=== PATIENT | female | born 1990 | race American Indian/Alaskan Native ===

== ENCOUNTER 2016-12-27 07:53 | Emergency (ER) | payer SELFPAY ==
[2016-12-27 09:13] LABS: Bilirubin,Urine NEG (Negative); Blood,Urine NEG (Negative); Ketones,Urine NEG (Negative); Leukocyte Esterase,Urine LG (Negative); Mucus,Urine 3+ /HPF; Nitrite,Urine NEG (Negative); Urobilinogen,Urine < 2.0 mg/dL (<2.0)
[2016-12-27 09:18] LABS: Basophils % (Auto) 0.6 % (0.0-1.8); Eosinophils % (Auto) 2.5 % (0.0-4.3); Hematocrit 35.8 % (30.3-42.9); Hemoglobin 12.1 gm/dl (10.1-14.3); Mean Corpuscular HGB Conc 34 % (30-34); Mean Corpuscular Hemoglobin 28 pg (28-32); Mean Corpuscular Volume 83 fl (79-97); Platelet Count 255 K/mm3 (140-440); Red Cell Distribution Width 14.2 % (13.2-15.2); White Blood Count 9.3 K/mm3 (4.5-11.0)
[2016-12-27 09:31] LABS: Alanine Aminotransferase 15 units/L (7-56); Albumin 4.1 g/dL (3.9-5); Albumin/Globulin Ratio 1.1 %; Alkaline Phosphatase 87 units/L (35-129); Anion Gap 19 mmol/L; BUN/Creatinine Ratio 21.66; Blood Urea Nitrogen 13 mg/dL (7-17); Carbon Dioxide 24 mmol/L (22-30); Chloride 99.4 mmol/L (98-107); Glucose 83 mg/dL (65-100); Potassium 3.7 mmol/L (3.6-5.0); Sodium 139 mmol/L (137-145); Total Protein 7.7 g/dL (6.3-8.2)
[2016-12-27 10:39] LABS: Lipase 21 units/L (13-60)
--- NOTE | 2016-12-27 14:56 | Emergency Department Report ---
HPI - General Chief Complaint: Abdominal Pain Time Seen by Provider: 12/27/16 13:31 - HPI HPI: 26-year-old female presents to the emergency department with complaint of a sharp right lower quadrant abdominal pain since last night. She also complains of a few days of some generalized vaginal discharge. She says that she does not have any particular color and is not particularly malodorous but she says it is a moderate amount as it is wetting her underwear. The patient says that she had a D&C or some type of about 2 weeks ago and she says she was about 6 weeks at that time. She otherwise has a past surgical history of having a . She admits that she missed her follow-up status post D&C. She denies any fever, back pain, nausea, vomiting, chest pain or shortness of breath. No recent travel or sick contacts at home. ED Past Medical Hx - Past Medical History Previous Medical History?: No - Surgical History Past Surgical History?: Yes Additional Surgical History: - Social History Smoking Status: Never Smoker Substance Use Type: Alcohol - Medications Home Medications: Home Medications Medication Instructions Recorded Confirmed Last Taken Type Cyclobenzaprine [Flexeril] 10 mg PO TID PRN #20 tablet 03/10/16 Unknown Rx Diclofenac Sodium 75 mg PO TID #20 tablet. 03/10/16 Unknown Rx HYDROcodone/APAP 5-325 [[place] 1 each PO Q6HR PRN #8 tablet 12/27/16 Unknown Rx 5/325] metroNIDAZOLE [Metronidazole] 70 gm VG QDAY #5 gel.w.appl 12/27/16 Unknown Rx ED Review of Systems ROS: Stated complaint: ABDOMINAL PAIN Other details as noted in HPI Comment: All other systems reviewed and negative Constitutional: denies: chills, fever Eyes: denies: eye pain, eye discharge, vision change ENT: denies: ear pain, throat pain Respiratory: denies: cough, shortness of breath, wheezing Cardiovascular: denies: chest pain, palpitations Gastrointestinal: abdominal pain. denies: nausea, vomiting Genitourinary: discharge. denies: dysuria Musculoskeletal: denies: back pain, joint swelling, arthralgia Skin: denies: rash, lesions Neurological: denies: headache, weakness, paresthesias Physical Exam - Physical Exam Vital Signs: Vital Signs 12/27/16 12/27/16 07:56 14:15 Temperature 98.4 F Pulse Rate 89 Respiratory 16 14 Rate Blood Pressure 122/84 O2 Sat by Pulse 99 Oximetry Physical Exam: GENERAL: The patient is well-developed well-nourished. HENT: Normocephalic. Atraumatic. Patient has moist mucous membranes. EYES: Extraocular motions are intact. Pupils equal reactive to light bilaterally. NECK: Supple. Trachea is midline. CHEST/LUNGS: Clear to auscultation. There is no respiratory distress noted. HEART/CARDIOVASCULAR: Regular. There is no tachycardia. There is no gallop rub or murmur. ABDOMEN: Abdomen is soft. There is some tenderness palpation to the lower quadrants of the abdomen. No guarding or rebound tenderness. Patient has normal bowel sounds. There is no abdominal distention. SKIN: There is no rash. There is no edema. There is no diaphoresis. NEURO: The patient is awake, alert, and oriented. The patient is cooperative. The patient has no focal neurologic deficits. The patient has normal speech. MUSCULOSKELETAL: There is no tenderness or deformity. There is no limitation range of motion. There is no evidence of acute injury. : There is a moderate amount of yellowish white discharge seen in the vaginal wall. No obvious vaginal or lesions. ED Course Vital Signs 12/27/16 12/27/16 07:56 14:15 Temperature 98.4 F Pulse Rate 89 Respiratory 16 14 Rate Blood Pressure 122/84 O2 Sat by Pulse 99 Oximetry ED Medical Decision Making - Lab Data Result diagrams: 12/27/16 08:34 12/27/16 08:34 - Radiology Data Radiology results: report reviewed PROCEDURE: CT ABDOMEN PELVIS W CON TECHNIQUE: Computerized axial tomography of the abdomen and pelvis was performed after the IV injection of iodinated nonionic contrast. HISTORY: Abdominal pain COMPARISON: No prior studies are available for comparison. FINDINGS: Visualized lower thorax: No significant abnormality. Liver: Normal size and attenuation. Spleen: Normal size and attenuation. Gallbladder and biliary system: Normal. Pancreas: Normal. Adrenals: Normal. Kidneys: There is a nonobstructive 1 millimeter calculus in the right kidney lower pole. GI tract: Mild to moderate volume of stool is seen in the colon. Correlate for constipation. The appendix is visualized and does not appear inflamed. No bowel obstruction or inflammation is identified Lymph nodes and mesentery: Normal. Vasculature: Normal. Bladder: Normal. Reproductive organs: Normal. Peritoneum: No free fluid. Musculoskeletal structures: No significant abnormality. Other: None. IMPRESSION: No acute abnormality is identified. PROCEDURE: US TRANSVAGINAL and transabdominal TECHNIQUE: Real-time transabdominal sonography in multiple planes of the pelvis was performed. The pelvic structures were not optimally visualized. Transvaginal sonography was then performed to better evaluate the structures and/or abnormalities described below with image documentation. Grayscale, color flow Doppler imaging and velocity spectral waveform analysis of the ovaries was employed (duplex imaging). CPT 43942, 72489, [place] 69132 HISTORY: pelvic pain rule out retained poc. 2 weeks ago. COMPARISON: No prior studies are available for comparison. FINDINGS: UTERUS Size: 7.5 x 4.0 x 5.6 cm. Endometrial thickness: 8 mm. Blood flow is seen within the endometrium Orientation: Retroflexed. Cervix: Normal. Fibroids/masses: None. RIGHT Ovary: 2.7 x 2.4 x 3.2 cm. Appearance: Normal. Doppler images: Normal spectral waveforms and color flow. The systolic and diastolic velocities are within normal limits. LEFT Ovary: 3.9 x 1.8 x 3.2 cm. Appearance: Normal. Doppler images: Normal spectral waveforms and color flow. The systolic and diastolic velocities are within normal limits. Pelvic fluid: None. Other: None. IMPRESSION: Endometrium measures 8 millimeters in thickness and demonstrates some vascularity. This is nonspecific given the clinical history, however if there are clinical signs of retained products of conception, this cannot be excluded sonographically. - Medical Decision Making 26-year-old female presents to the emergency department with sharp abdominal pain since last night 2 weeks status post elective . Labs are grossly unremarkable. CT is unremarkable and does not show any abnormalities. The results were to be signed out to a colleague who then also obtained a transvaginal ultrasound. There sounds showed some endometrial thickening and hypervascularity but otherwise no acute process. Vital signs stable. Patient appears safe for discharge home and has been encouraged to follow up with her OB /INFORMATICS SPEC and primary care physician. - Differential Diagnosis retained products conception, fibroids, UTI Critical Care Time: No Critical care attestation.: If time is entered above; I have spent that time in minutes in the direct care of this critically ill patient, excluding procedure time. ED Disposition Clinical Impression: Vaginal discharge, Bacterial vaginosis Abdominal pain Qualifiers: Abdominal location: lower abdomen, unspecified Qualified Code(s): R10.30 - Lower abdominal pain, unspecified Disposition: TO HOME OR SELFCARE Is pt being admited?: No Condition: Stable Instructions: Abdominal Pain (ED), Bacterial Vaginosis (ED) Additional Instructions: These follow-up with a primary care doctor as well as your BIOPHYSICS SCIENTIST. Return to the emergency Department with any worsening of your symptoms or any acute distress. You have been prescribed a medication that is sedating and therefore should not be taken prior to driving, working, and responsible for children and in no way should be mixed with alcohol of any quantity. Prescriptions: HYDROcodone/APAP 5-325 [[place] 5/325] 1 each PO Q6HR PRN #8 tablet PRN Reason: Pain metroNIDAZOLE [Metronidazole] 70 gm VG QDAY #5 gel.w.appl Referrals: PRIMARY CARE, [Primary Care Provider] - 3-5 Days SARINA ROSS MD [Staff Physician] - 3-5 Days [facility] [Outside] - 3-5 Days Forms: Work/School Release Form(ED), STI Treatment and Prevention Time of Disposition: 16:08
[2016-12-27] MEDS ORDERED: NACL ONE (15:03)
--- NOTE | 2016-12-27 16:30 | Cat Scan Report ---
FINAL REPORT PROCEDURE: CT ABDOMEN PELVIS W CON TECHNIQUE: Computerized axial tomography of the abdomen and pelvis was performed after the IV injection of iodinated nonionic contrast. HISTORY: Abdominal pain COMPARISON: No prior studies are available for comparison. FINDINGS: Visualized lower thorax: No significant abnormality. Liver: Normal size and attenuation. Spleen: Normal size and attenuation. Gallbladder and biliary system: Normal. Pancreas: Normal. Adrenals: Normal. Kidneys: There is a nonobstructive 1 millimeter calculus in the right kidney lower pole. GI tract: Mild to moderate volume of stool is seen in the colon. Correlate for constipation. The appendix is visualized and does not appear inflamed. No bowel obstruction or inflammation is identified Lymph nodes and mesentery: Normal. Vasculature: Normal. Bladder: Normal. Reproductive organs: Normal. Peritoneum: No free fluid. Musculoskeletal structures: No significant abnormality. Other: None. IMPRESSION: No acute abnormality is identified.
[2016-12-27 17:59] VITALS: BP 114/73
--- NOTE | 2016-12-27 18:03 | Ultrasound Report ---
FINAL REPORT PROCEDURE: US TRANSVAGINAL and transabdominal TECHNIQUE: Real-time transabdominal sonography in multiple planes of the pelvis was performed. The pelvic structures were not optimally visualized. Transvaginal sonography was then performed to better evaluate the structures and/or abnormalities described below with image documentation. Grayscale, color flow Doppler imaging and velocity spectral waveform analysis of the ovaries was employed (duplex imaging). CPT 12203, 73243, and 01307 HISTORY: pelvic pain rule out retained poc. 2 weeks ago. COMPARISON: No prior studies are available for comparison. FINDINGS: UTERUS Size: 7.5 x 4.0 x 5.6 cm. Endometrial thickness: 8 mm. Blood flow is seen within the endometrium Orientation: Retroflexed. Cervix: Normal. Fibroids/masses: None. RIGHT Ovary: 2.7 x 2.4 x 3.2 cm. Appearance: Normal. Doppler images: Normal spectral waveforms and color flow. The systolic and diastolic velocities are within normal limits. LEFT Ovary: 3.9 x 1.8 x 3.2 cm. Appearance: Normal. Doppler images: Normal spectral waveforms and color flow. The systolic and diastolic velocities are within normal limits. Pelvic fluid: None. Other: None. IMPRESSION: Endometrium measures 8 millimeters in thickness and demonstrates some vascularity. This is nonspecific given the clinical history, however if there are clinical signs of retained products of conception, this cannot be excluded sonographically. PROCEDURE: TECHNIQUE: HISTORY: COMPARISON: FINDINGS: IMPRESSION:
--- NOTE | 2016-12-27 18:03 | Ultrasound Report ---
FINAL REPORT PROCEDURE: US TRANSVAGINAL and transabdominal TECHNIQUE: Real-time transabdominal sonography in multiple planes of the pelvis was performed. The pelvic structures were not optimally visualized. Transvaginal sonography was then performed to better evaluate the structures and/or abnormalities described below with image documentation. Grayscale, color flow Doppler imaging and velocity spectral waveform analysis of the ovaries was employed (duplex imaging). CPT 84015, 01948, [place] 00061 HISTORY: pelvic pain rule out retained poc. 2 weeks ago. COMPARISON: No prior studies are available for comparison. FINDINGS: UTERUS Size: 7.5 x 4.0 x 5.6 cm. Endometrial thickness: 8 mm. Blood flow is seen within the endometrium Orientation: Retroflexed. Cervix: Normal. Fibroids/masses: None. RIGHT Ovary: 2.7 x 2.4 x 3.2 cm. Appearance: Normal. Doppler images: Normal spectral waveforms and color flow. The systolic and diastolic velocities are within normal limits. LEFT Ovary: 3.9 x 1.8 x 3.2 cm. Appearance: Normal. Doppler images: Normal spectral waveforms and color flow. The systolic and diastolic velocities are within normal limits. Pelvic fluid: None. Other: None. IMPRESSION: Endometrium measures 8 millimeters in thickness and demonstrates some vascularity. This is nonspecific given the clinical history, however if there are clinical signs of retained products of conception, this cannot be excluded sonographically.
[2016-12-27] MEDS ORDERED: TYLENOL ONE (18:09)
[2016-12-27] MEDS ORDERED: MOTRIN PO ONE ×2 (18:09→18:20)
[2016-12-27] MEDS ORDERED: TYLENOL PO ONE (18:20)
--- NOTE | 2016-12-27 18:33 | Event Note ---
Date: 12/27/16 CT scan demonstrates no acute disease, pelvic ultrasound unremarkable, endometrial thickness 8 mm. As per discussion with patient and review of chart , patient had a procedure for D&C approximately 2 weeks ago and failed to follow -up. She is afebrile with reassuring vital signs, and appears quite comfortable , and her abdomen is nontender. This is discussed with the park warden medical communication specialist , Dr. Phoenix, and we are both in agreement that the patient is suitable to follow-up with outpatient park warden who performed her procedure. The patient will be discharged with MetroGel for presumed BV, and she is counseled to follow up. Return precautions are reviewed. Vital Signs 12/27/16 12/27/16 12/27/16 07:56 14:15 17:58 Temperature 98.4 F 98.0 F Pulse Rate 89 71 Respiratory 16 14 14 Rate Blood Pressure 122/84 Blood Pressure 114/73 [Right] O2 Sat by Pulse 99 Oximetry Lab Results 12/27/16 12/27/16 12/27/16 Range/Units 08:10 08:34 08:34 WBC 9.3 (4.5-11.0) K/mm3 RBC 4.30 (3.65-5.03) M/mm3 Hgb 12.1 (10.1-14.3) gm/dl Hct 35.8 (30.3-42.9) % MCV 83 (79-97) fl MCH 28 (28-32) pg MCHC 34 (30-34) % RDW 14.2 (13.2-15.2) % Plt Count 255 (140-440) K/mm3 Lymph % (Auto) 24.4 (13.4-35.0) % [place] % (Auto) 10.4 H (0.0-7.3) % Eos % (Auto) 2.5 (0.0-4.3) % Baso % (Auto) 0.6 (0.0-1.8) % Lymph # 2.3 (1.2-5.4) K/mm3 [place] # 1.0 H (0.0-0.8) K/mm3 Eos # 0.2 (0.0-0.4) K/mm3 Baso # 0.1 (0.0-0.1) K/mm3 Seg Neutrophils % 62.1 (40.0-70.0) % Seg Neutrophils # 5.8 (1.8-7.7) K/mm3 Sodium 139 (137-145) mmol/L Potassium 3.7 (3.6-5.0) mmol/L Chloride 99.4 (98-107) mmol/L Carbon Dioxide 24 (22-30) mmol/L Anion Gap 19 mmol/L BUN 13 (7-17) mg/dL Creatinine 0.6 L (0.7-1.2) mg/dL Estimated GFR > 60 ml/min BUN/Creatinine Ratio 21.66 % Glucose 83 (65-100) mg/dL Calcium 9.0 (8.4-10.2) mg/dL Total Bilirubin 0.20 (0.1-1.2) mg/dL AST 18 (5-40) units/L ALT 15 (7-56) units/L Alkaline Phosphatase 87 (35-129) units/L Total Protein 7.7 (6.3-8.2) g/dL Albumin 4.1 (3.9-5) g/dL Albumin/Globulin Ratio 1.1 % Lipase 21 (13-60) units/L HCG, Quant (0-4) mIU/mL Urine Color Yellow (Yellow) Urine Turbidity Cloudy (Clear) Urine pH 5.0 (5.0-7.0) Ur Specific [place] 1.033 H (1.003-1.030) Urine Protein 30 mg/dl (Negative) mg/dL Urine Glucose (UA) Neg (Negative) mg/dL Urine Ketones Neg (Negative) mg/dL Urine Blood Neg (Negative) Urine Nitrite Neg (Negative) Urine Bilirubin Neg (Negative) Urine Urobilinogen < 2.0 (<2.0) mg/dL Ur Leukocyte Esterase Lg (Negative) Urine WBC (Auto) 60.0 H (0.0-6.0) /HPF Urine RBC (Auto) 7.0 (0.0-6.0) /HPF U Epithel Cells (Auto) 25.0 H (0-13.0) /HPF Urine Mucus 3+ /HPF 12/27/16 Range/Units 11:18 WBC (4.5-11.0) K/mm3 RBC (3.65-5.03) M/mm3 Hgb (10.1-14.3) gm/dl Hct (30.3-42.9) % MCV (79-97) fl MCH (28-32) pg MCHC (30-34) % RDW (13.2-15.2) % Plt Count (140-440) K/mm3 Lymph % (Auto) (13.4-35.0) % [place] % (Auto) (0.0-7.3) % Eos % (Auto) (0.0-4.3) % Baso % (Auto) (0.0-1.8) % Lymph # (1.2-5.4) K/mm3 [place] # (0.0-0.8) K/mm3 Eos # (0.0-0.4) K/mm3 Baso # (0.0-0.1) K/mm3 Seg Neutrophils % (40.0-70.0) % Seg Neutrophils # (1.8-7.7) K/mm3 Sodium (137-145) mmol/L Potassium (3.6-5.0) mmol/L Chloride (98-107) mmol/L Carbon Dioxide (22-30) mmol/L Anion Gap mmol/L BUN (7-17) mg/dL Creatinine (0.7-1.2) mg/dL Estimated GFR ml/min BUN/Creatinine Ratio % Glucose (65-100) mg/dL Calcium (8.4-10.2) mg/dL Total Bilirubin (0.1-1.2) mg/dL AST (5-40) units/L ALT (7-56) units/L Alkaline Phosphatase (35-129) units/L Total Protein (6.3-8.2) g/dL Albumin (3.9-5) g/dL Albumin/Globulin Ratio % Lipase (13-60) units/L HCG, Quant 4.18 H (0-4) mIU/mL Urine Color (Yellow) Urine Turbidity (Clear) Urine pH (5.0-7.0) Ur Specific [place] (1.003-1.030) Urine Protein (Negative) mg/dL Urine Glucose (UA) (Negative) mg/dL Urine Ketones (Negative) mg/dL Urine Blood (Negative) Urine Nitrite (Negative) Urine Bilirubin (Negative) Urine Urobilinogen (<2.0) mg/dL Ur Leukocyte Esterase (Negative) Urine WBC (Auto) (0.0-6.0) /HPF Urine RBC (Auto) (0.0-6.0) /HPF U Epithel Cells (Auto) (0-13.0) /HPF Urine Mucus /HPF
== END 2016-12-27 18:00 | disposition home or self-care (01) ==
LOC: ED 07:53
DX: N89.8 Other specified noninflammatory disorders of vagina (principal); N76.0 Acute vaginitis; B96.89 Other specified bacterial agents as the cause of diseases classified elsewhere
CPT/HCPCS: 36415; 74177; 76830; 80053; 81001; 83690; 84702; 85025; 87210; 87591; 93975; 99285; Q9967